=== PATIENT | female | born 1995 | race Caucasian/White ===

== ENCOUNTER 2017-04-06 02:10 | Emergency (ER) | payer OTHER ==
[~2017-04-06] VITALS: Ht 180.3 cm; Wt 66.4 kg
[2017-04-06 02:13] VITALS: TEMP 36.6; Ht 180.3 cm; Wt 66.4 kg
[2017-04-06] MEDS ORDERED: KETOROLAC TROMETHAMINE 30 MG/ML VIAL IV STA (02:43)
[2017-04-06] MEDS ORDERED: ONDANSETRON INJ 2 MG/ML 2 ML VIAL IV STA (02:47)
[2017-04-06] MEDS ORDERED: SODIUM CHLORIDE 0.9% 500ML 500 ML IV STA (02:47)
[2017-04-06 02:52] LABS: BASO % 0.2 %; BASO ABS # 0.02 K/uL (0-0.2); EOS % 0.5 %; EOS ABS # 0.05 K/uL (0-0.5); HEMATOCRIT 43.4 % (37-47); HEMOGLOBIN 15.3 g/dL (12.0-16.0); IG# 0.03 K/uL (0.00-0.02); LYMPH % 21.8 %; LYMPH ABS # 2.42 K/uL (1.2-3.4); MEAN CORPUSCULAR HGB CONC 35.3 g/dl (32-36); MEAN PLATELET VOLUME 10.2 fL (7.4-10.4); MONO % 5.6 %; MONO ABS # 0.62 K/uL (0.11-0.59); NEUT % 71.6 %; NEUT ABS # 7.97 K/uL (1.4-6.5); PLATELET COUNT 268 K/uL (130-400); RED CELL DISTRIBUTION WIDTH CV 12.3 % (11.5-14.5); RED CELL DISTRIBUTION WIDTH SD 39.1 fL (36.4-46.3); WHITE BLOOD COUNT 11.11 K/uL (4.8-10.8)
--- NOTE | 2017-04-06 02:53 | EMERGENCY ROOM VISIT NOTE ---
History Report prepared by Syed: Cory Villegas Under the Supervision of: Dr. Jina Wilkins D.O. First contact with patient: 02:20 Chief Complaint: ABDOMINAL PAIN Stated Complaint: STOMACH History of Present Illness The patient is a 21 year old female who presents to the Emergency Room with complaints of constant abdominal pain that started an hour ago, and she describes it as a burning sensation. The patient states that she woke up from the pain, and she states that she vomited, her heart was racing, and she was sweaty. She denies any diarrhea, and she states that she felt fine before bed. The patient states that she ate a chicken sophie sandwich before bed, and she ate fish for dinner, and both are not out of the ordinary The patient states that she has not had any difficulty urinating, and she states that she had a bowel movement today. The patient denies any sore throat, cough, leg swelling, leg pain, and no one else is sick around her at home. She states that no one is sick around her at home, and she is not under more stress than usual. She has never been hospitalized before, and she has no medical problems. Source of History: patient Onset: an hour ago Position: abdomen Quality: burning Timing: constant Associated Symptoms: + vomiting, No sorethroat, No cough, No diarrhea Note: Associated symptoms: Heart racing and sweaty Review of Systems See HPI for pertinent positives & negatives. A total of 10 systems reviewed and were otherwise negative. Past Medical & Surgical Medical Problems: (1) No chronic problems Family History Cancer Social History Smoking Status: Never Smoker Housing Status: lives with roommate Occupation Status: [employer] Current/Historical Medications Scheduled Control Pills ( Control Pills), 1 TAB PO DAILY Spironolactone (Aldactone), 25 MG PO DAILY Allergies Coded Allergies: No Known Allergies (Unverified , 04/06/17) Physical Exam Vital Signs Date Time Temp Pulse Resp B/P (MAP) Pulse Ox O2 Delivery O2 Flow Rate FiO2 04/06/17 04:22 87 18 127/71 100 04/06/17 03:04 93 19 117/83 98 04/06/17 02:31 110 04/06/17 02:13 36.6 117 16 123/88 99 Room Air Physical Exam General: Appears uncomfortable. HEENT: Head - normocephalic and atraumatic Pupils are equal, round, and reactive to light. Extraocular eye muscles are intact, and sclera are anicteric. Nose - moist nasal mucosa without discharge. Mouth - moist buccal mucosa. Oropharynx is nonerythematous and there is no tonsillar exudate or edema noted. Neck: Supple; no JVD, nuchal rigidity, cervical lymphadenopathy. Heart: Tachycardic rate and regular rhythm. There is a normal S1 and S2 with no murmurs, clicks, or gallops appreciated. Lungs: Clear to auscultation bilaterally with no wheezes, rales, or rhonchi. Abdomen: Epigastric tenderness to palpation. Soft, nondistended, with good bowel sounds. There are no palpable pulsatile masses or hepatosplenomegaly. There is no guarding, rigidity, or rebound noted. Extremities: No evidence of cyanosis, clubbing, or edema. There are easily palpable peripheral pulses. Skin: warm and dry with good turgor and no rashes. Medical Decision & Procedures Laboratory Results 04/06/17 02:40 Red Blood Count 4.93, Mean Corpuscular Volume 88.0, Mean Corpuscular Hemoglobin 31.0, Mean Corpuscular Hemoglobin Concent 35.3, Mean Platelet Volume 10.2, Neutrophils (%) (Auto) 71.6, Lymphocytes (%) (Auto) 21.8, Monocytes (%) (Auto) 5.6, Eosinophils (%) (Auto) 0.5, Basophils (%) (Auto) 0.2, Neutrophils # (Auto) 7.97, Lymphocytes # (Auto) 2.42, Monocytes # (Auto) 0.62, Eosinophils # (Auto) 0.05, Basophils # (Auto) 0.02 04/06/17 02:40 Test 04/06/17 02:40 04/06/17 04:00 White Blood Count 11.11 K/uL (4.8-10.8) Red Blood Count 4.93 M/uL (4.2-5.4) Hemoglobin 15.3 g/dL (12.0-16.0) Hematocrit 43.4 % (37-47) Mean Corpuscular Volume 88.0 fL (80-100) Mean Corpuscular Hemoglobin 31.0 pg (25-34) Mean Corpuscular Hemoglobin Concent 35.3 g/dl (32-36) Platelet Count 268 K/uL (130-400) Mean Platelet Volume 10.2 fL (7.4-10.4) Neutrophils (%) (Auto) 71.6 % Lymphocytes (%) (Auto) 21.8 % Monocytes (%) (Auto) 5.6 % Eosinophils (%) (Auto) 0.5 % Basophils (%) (Auto) 0.2 % Neutrophils # (Auto) 7.97 K/uL (1.4-6.5) Lymphocytes # (Auto) 2.42 K/uL (1.2-3.4) Monocytes # (Auto) 0.62 K/uL (0.11-0.59) Eosinophils # (Auto) 0.05 K/uL (0-0.5) Basophils # (Auto) 0.02 K/uL (0-0.2) RDW Standard Deviation 39.1 fL (36.4-46.3) RDW Coefficient of Variation 12.3 % (11.5-14.5) Immature Granulocyte % (Auto) 0.3 % Immature Granulocyte # (Auto) 0.03 K/uL (0.00-0.02) Anion Gap 8.0 mmol/L (3-11) Est Creatinine Clear Calc Drug Dose 104.2 ml/min Estimated GFR () 106.0 Estimated GFR (Non- 91.5 BUN/Creatinine Ratio 14.4 (10-20) Calcium Level 9.0 mg/dl (8.5-10.1) Total Bilirubin 0.2 mg/dl (0.2-1) Direct Bilirubin < 0.1 mg/dl (0-0.2) Aspartate Amino Transf (AST/SGOT) 12 U/L (15-37) Alanine Aminotransferase (ALT/SGPT) 17 U/L (12-78) Alkaline Phosphatase 44 U/L (45-117) Total Protein 7.8 gm/dl (6.4-8.2) Albumin 3.9 gm/dl (3.4-5.0) Lipase 296 U/L (73-393) Urine Color YELLOW Urine Appearance CLEAR (CLEAR) Urine pH 6.0 (4.5-7.5) Urine Specific [place] 1.024 (1.000-1.030) Urine Protein NEG (NEG) Urine Glucose (UA) NEG (NEG) Urine Ketones TRACE (NEG) Urine Occult Blood NEG (NEG) Urine Nitrite NEG (NEG) Urine Bilirubin NEG (NEG) Urine Urobilinogen NEG (NEG) Urine Leukocyte Esterase NEG (NEG) Urine Test NEG (NEG) Laboratory results per my review. Medications Administered Medications (Trade) Dose Ordered Sig/Shreya Route Start Time Stop Time Status Last Admin Dose Admin Ketorolac Tromethamine (Toradol Inj) 30 mg NOW STAT IV 04/06/17 02:43 04/06/17 02:44 DC 04/06/17 02:54 30 MG Sodium Chloride 500 ml @ 999 mls/hr Q31M STAT IV 04/06/17 02:47 04/06/17 03:17 DC 04/06/17 02:55 999 MLS/HR Ondansetron HCl (Zofran Inj) 4 mg NOW STAT IV 04/06/17 02:47 04/06/17 02:48 DC 04/06/17 02:54 4 MG Procedure Ordered: Toradol IV, Zofran IV, and Sodium Chloride IV ED Course 0240: Past medical records reviewed. The patient was evaluated in room B5. A complete history and physical exam was performed. An IV lock was initiated and labs were drawn as above. 0243: Toradol 30mg IV 0247: Zofran 4mg IV, Sodium Chloride 500 ml @ 999 mls/hr IV. 0350: I reevaluated the patient, and she looks great. Her symptoms have resolved , and she is going to give a urine specimen. 0420: Upon reevaluation, the patient is still doing well. I discussed findings and results with her. She verbalized agreement of the treatment plan. She was discharged home. Medical Decision The patient is a 21 year old female who presents to the ED with abdominal pain. Differential diagnosis includes GERD, ulcerative disease, pancreatitis, and cholecystitis. Lab results: white count of 11.1, stable H&H, normal renal function, normal glucose, and normal LFTs. Urine dip was negative. This is a 21-year-old female patient who awoke with epigastric abdominal pain. The patient's symptoms have completely resolved. She is comfortable at this time. I encouraged her to take a bland diet and plenty of clear liquids. She should return here to the emergency department if she has recurrent symptoms, vomiting, or fever. If the pain persists, the patient should follow-up with [facility] for recheck. She can use Tylenol or Motrin for the discomfort. Medication Reconcilliation Current Medication List: was personally reviewed by me Blood Pressure Screening Patient's blood pressure: Normal blood pressure Impression Primary Impression: Epigastric abdominal pain Scribe Attestation The scribe's documentation has been prepared under my direction and personally reviewed by me in its entirety. I confirm that the note above accurately reflects all work, treatment, procedures, and medical decision making performed by me. Departure Information Dispostion Home / Self-Care Referrals No Doctor, Assigned (PCP) Forms HOME CARE DOCUMENTATION FORM, IMPORTANT VISIT INFORMATION Patient Instructions ED Epigastric Pain RAVIN, My [facility] Additional Instructions Rest. Take a bland diet and plenty of clear liquids. If you have any worsening symptoms, return to the ED. Follow up with S if pain persists
[2017-04-06 03:09] LABS: ALBUMIN 3.9 gm/dl (3.4-5.0); ALT/SGPT 17 U/L (12-78); AST/SGOT 12 U/L (15-37); BLOOD UREA NITROGEN 13 mg/dl (7-18); CARBON DIOXIDE 26 mmol/L (21-32); CREATININE 0.91 mg/dl (0.60-1.20); GLUCOSE 97 mg/dl (70-99); LIPASE 296 U/L (73-393); POTASSIUM 3.2 mmol/L (3.5-5.1); SODIUM 138 mmol/L (136-145)
[2017-04-06 03:11] LABS: ALKALINE PHOSPHATASE 44 U/L (45-117); TOTAL PROTEIN 7.8 gm/dl (6.4-8.2)
[2017-04-06] MEDS ORDERED: BCPILLS PO (03:18)
[2017-04-06] MEDS ORDERED: SPIR25TA PO (03:19)
[2017-04-06 04:22] VITALS: BP 127/71; PULSE 87; O2SAT 100
== END 2017-04-06 04:22 | disposition home or self-care (01) ==
LOC: C.EDB 02:11
DX: R10.13 Epigastric pain (principal); R11.10 Vomiting, unspecified; Z79.3 Long term (current) use of hormonal contraceptives; Z79.899 Other long term (current) drug therapy